=== PATIENT | female | born 1970 | race Caucasian/White ===

== ENCOUNTER → 2016-04-18 | Outpatient (CLI) | payer OTHER ==
[~2016-04-18] MED LIST: LISINOPRIL/HCTZ1 TA5 PO; LOVASTATIN20 MG PO; OMEPRAZOLE20 M2 PO; Sarafem20 MG PO; VISTARIL25 MG PO; VITAMIN D50000 I2 PO
== END | disposition home or self-care (01) ==
LOC: MAMMO 08:33
DX: Z12.31 Encounter for screening mammogram for malignant neoplasm of breast (principal)

== ENCOUNTER → 2018-04-20 | Day surgery (SDC) | payer OTHER ==
[~2018-04-20] VITALS: Ht 167.6 cm; Wt 173.7 kg
[~2018-04-20] MED LIST changes: +DEPO PROVER150 MG/M1 IM; +GAVISCON ES TA1 EACH PO; +TEGRETOL XR200 MG PO
--- NOTE | ~2018-04-20 | O ---
[place], [place] OPERATIVE NOTE NAME: SUKHWINDER SAWYER UNIT #: [id number] ROOM: DOCTOR: NETTA ARCHER MD BIRTHDATE: [birth year] DOS: 04/20/2018 GASTROENDOSCOPIC REPORT HISTORY OF PRESENT ILLNESS: A 47-year-old patient who has presented with chief complaint of persistent dyspepsia, epigastric distress, and reflux symptomatology. ALLERGIES: No known medications. FAMILY HISTORY: Uncle with colonic carcinoma. PAST SURGICAL HISTORY: Unremarkable. PAST MEDICAL HISTORY: Morbid obesity, seizure disorder, depression, and last seizure in 2013. SOCIAL HISTORY: Nonsmoker, nonalcohol consumer. MEDICATIONS: The patient has been on Zantac, which has not helped ____ her dyspepsia. PROCEDURE: Today's procedure part of investigation is panendoscopy plus biopsy and photographic series. PREMEDICATION: Propofol. SCOPE: Olympus forward-viewing gastroscope Q10 video. REPORT: After putting the patient in left lateral position and application of lubricant to the scope, the scope was introduced. Thereafter, under direct visualization, advanced through the length of esophagus without difficulty. Distal esophageal ulcer was identified. Distal esophagitis consistent with reflux, hiatal hernia was approach, and gastritis was seen. Antral biopsy obtained. Duodenal bulb, second and third part within normal limits. The patient extubated, tolerated the procedure well. IMPRESSION: Distal esophageal ulcer, esophagitis, gastritis, and antral biopsy. PLAN AND DISCUSSION: We are going to place her on 40 mg of omeprazole daily. Gaviscon Extra Strength a.m. and p.m., elevation of the head of the bed 10 inches all time, serious dietary restrictions have to be observed by her, as she is morbidly obese and antireflux measures and clinical reassessment. [place], [place] OPERATIVE NOTE NAME: SUKHWINDER SAWYER UNIT #: [id number] ROOM: DOCTOR: NETTA ARCHER MD BIRTHDATE: [birth year] NETTA ARCHER MD CM:OPRECORD:OPERATIVE NOTE 1224 [id number] NETTA ARCHER MD 04/20/18 1246 interface
[2018-04-20 11:15] VITALS: BP 156/74
[2018-04-20 12:20] VITALS: BP 121/74
[2018-04-20 12:35] VITALS: BP 104/46
[2018-04-20 12:50] VITALS: BP 114/72
[2018-04-20 13:05] VITALS: BP 134/72
[2018-04-20 13:20] VITALS: BP 130/76
== END | disposition home or self-care (01) ==
LOC: SDC 04-17 12:30
DX: K29.70 Gastritis, unspecified, without bleeding (principal); K21.0 Gastro-esophageal reflux disease with esophagitis; K22.10 Ulcer of esophagus without bleeding; G40.909 Epilepsy, unspecified, not intractable, without status epilepticus; F41.9 Anxiety disorder, unspecified; E78.00 Pure hypercholesterolemia, unspecified; I10 Essential (primary) hypertension; E66.01 Morbid (severe) obesity due to excess calories; Z68.44 Body mass index [BMI] 60.0-69.9, adult; Z91.040 Latex allergy status; Z88.0 Allergy status to penicillin; Z79.899 Other long term (current) drug therapy; Z82.49 Family history of ischemic heart disease and other diseases of the circulatory system

== ENCOUNTER → 2019-03-21 | Outpatient (CLI) | payer OTHER ==
[2019-03-21 13:28] LABS: BASO % 0.6 % (0.0-1.0); EOS % 0.3 % (1.0-4.0); HEMOGLOBIN 15.5 g/dl (12.0-16.0); LYMPH # 2.4 10*3/uL (1.3-4.4); LYMPH % 32.3 % (27.0-41.0); MEAN CELL VOLUME 88.5 fl (81.0-99.0); MEAN CORPUSCULAR HGB 29.2 pg (27.0-31.0); MEAN PLATELET VOLUME 10.9 fl (9.6-12.3); MONO # 0.6 10*3/uL (0.1-1.0); MONO % 8.8 % (3.0-9.0); NEUT # 4.2 10*3/uL (2.3-7.9); NEUT % 57.7 % (47.0-73.0); PLATELET COUNT AUTOMATED 307 10*3/uL (130-400); RED BLOOD COUNT 5.31 10*6/uL (4.10-5.10); RED CELL DISTRI WIDTH 12.5 % (0-14.5); WHITE BLOOD COUNT 7.3 10*3/uL (4.8-10.8)
[2019-03-21 13:49] LABS: ALBUMIN 3.8 gm/dl (3.1-4.5); ALKALINE PHOSPHATASE 113 U/L (45-117); BUN 13 mg/dl (7-24); CHLORIDE 106 mmol/L (98-107); CHOLESTEROL 262 mg/dL (<200); CREATININE 0.94 mg/dL (0.55-1.02); HDL CHOLESTEROL 69 mg/dl (40-60); LDL CHOLESTEROL 144 mg/dL (9-159); POTASSIUM 4.2 mmol/L (3.5-5.1); SGOT/AST 20 IU/L (3-35); SGPT/ALT 20 U/L (12-78); SODIUM 138 mmol/L (136-145); TOTAL PROTEIN 7.8 gm/dL (6.4-8.2); TRIGLYCERIDES 245 mg/dl (<150); VLDL CHOLESTEROL 49 mg/dL (6-40)
== END | disposition home or self-care (01) ==
LOC: LAB 13:11
PROVIDERS: Internal Medicine; Psychiatry & Neurology Neurology
DX: F32.9 Major depressive disorder, single episode, unspecified (principal); G47.00 Insomnia, unspecified; E78.2 Mixed hyperlipidemia; R56.9 Unspecified convulsions

== ENCOUNTER 2020-02-14 16:22 | Emergency (ER) | payer OTHER ==
[~2020-02-14] VITALS: Ht 165.1 cm; Wt 158.8 kg
[2020-02-14] MEDS ORDERED: ROBAXIN-750750 MG PO (20:40)
== END 2020-02-14 20:44 | disposition home or self-care (01) ==
LOC: ED 16:22
DX: S13.9XXA Sprain of joints and ligaments of unspecified parts of neck, initial encounter (principal); S00.93XA Contusion of unspecified part of head, initial encounter; Z88.0 Allergy status to penicillin; Z91.040 Latex allergy status; Z79.899 Other long term (current) drug therapy; Y08.89XA Assault by other specified means, initial encounter; Y93.89 Activity, other specified; Y92.89 Other specified places as the place of occurrence of the external cause; Y99.8 Other external cause status

== ENCOUNTER → 2020-08-24 | Outpatient (CLI) | payer OTHER ==
[~2020-08-24] MED LIST changes: +ROBAXIN-750750 MG PO
== END | disposition home or self-care (01) ==
LOC: MAMMO 10:58
PROVIDERS: ATTEND Internal Medicine
DX: Z12.31 Encounter for screening mammogram for malignant neoplasm of breast (principal)

== ENCOUNTER → 2021-06-28 | Outpatient (CLI) | payer OTHER ==
[2021-06-28 13:21] LABS: BILIRUBIN Negative (Negative); BLOOD 1+ (Negative); CLARITY Cloudy (Clear); COLOR Dark Yellow (Yellow); GLUCOSE Negative (Negative); KETONE Trace (Negative); LEUKO ESTERASE 2+ (Negative); NITRITE Negative (Negative); SPECIFIC GRAVITY 1.025 (1.001-1.030)
[2021-06-28 13:41] LABS: BACTERIA 2+; EPITHELIAL CELLS 16-20; MUCOUS 2+; WBC 21-30 wbc/hpf (0-5)
== END | disposition home or self-care (01) ==
LOC: LAB 12:30
PROVIDERS: ATTEND Nurse Practitioner Family
DX: R30.0 Dysuria (principal)

== ENCOUNTER 2024-07-21 11:58 | Emergency (ER) | payer OTHER ==
[~2024-07-21] VITALS: Ht 167.6 cm; Wt 181.9 kg
[2024-07-21] MEDS ORDERED: Midazolam Hydrochloride 5 MG/5 ML VIAL IV PRN (12:05)
[2024-07-21] MEDS ORDERED: SODIUM CHLORIDE 0.9% 1,000 ML IV ONE (12:15)
[2024-07-21 12:36] LABS: BASO # 0.1 10*3/uL (0.0-0.1); BASO % 0.5 % (0.0-1.0); EOS % 0.2 % (1.0-4.0); HEMATOCRIT 47.8 % (37.0-47.0); MEAN CELL VOLUME 88.8 fl (81.0-99.0); MEAN CORPUSCULAR HGB 28.4 pg (27.0-31.0); MEAN PLATELET VOLUME 10.6 fl (9.6-12.3); MONO # 0.7 10*3/uL (0.1-1.0); MONO % 7.1 % (3.0-9.0); NEUT # 6.8 10*3/uL (2.3-7.9); NEUT % 69.8 % (47.0-73.0); PLATELET COUNT AUTOMATED 296 10*3/uL (130-400); RED BLOOD COUNT 5.38 10*6/uL (4.10-5.10); RED CELL DISTRI WIDTH 13.2 % (0-14.5); WHITE BLOOD COUNT 9.8 10*3/uL (4.8-10.8)
[2024-07-21 12:49] LABS: ACT PARTIAL THROMBO TIME 27.3 SECONDS (20.0-32.1)
[2024-07-21 13:00] LABS: ALKALINE PHOSPHATASE 120 U/L (46-116); BUN 11 mg/dl (9-23); CHLORIDE 101 mmol/L (98-107); ETHYL ALCOHOL < 3.0 mg/dl (<3); POTASSIUM 4.1 mmol/L (3.4-5.1); SGPT/ALT 20 U/L (5-49); TOTAL PROTEIN 7.5 gm/dL (6.0-8.0)
[2024-07-21 16:53] LABS: BILIRUBIN Negative (Negative); BLOOD 2+ (Negative); CLARITY Cloudy (Clear); COLOR Yellow (Yellow); GLUCOSE Negative (Negative); KETONE Trace (Negative); LEUKO ESTERASE Trace (Negative); NITRITE Negative (Negative); SPECIFIC GRAVITY 1.025 (1.001-1.030)
[2024-07-21 17:00] LABS: URINE AMPHETAMINES Negative (1000ng/ml); URINE BARBITURATES Negative (200ng/ml); URINE BENZODIAZEPINES Positive (200ng/ml); URINE CANNABINOIDS (THC) Negative (50ng/ml); URINE COCAINE Negative (300ng/ml); URINE METHADONE Negative (300ng/ml); URINE OPIATES Negative (300ng/ml); URINE PHENCYCLIDINE Negative (25ng/ml)
[2024-07-21 17:05] LABS: BACTERIA 1+
[2024-07-21 17:06] LABS: HYALINE CAST 0-2
== END 2024-07-21 18:31 | disposition home or self-care (01) ==
LOC: ED 11:58
PROVIDERS: Internal Medicine
DX: G40.909 Epilepsy, unspecified, not intractable, without status epilepticus (principal); I10 Essential (primary) hypertension; K21.9 Gastro-esophageal reflux disease without esophagitis; E66.9 Obesity, unspecified; Z88.0 Allergy status to penicillin; Z91.040 Latex allergy status; Z79.899 Other long term (current) drug therapy; Z68.30 Body mass index [BMI] 30.0-30.9, adult